=== PATIENT | female | born 1965 | race African-American/Black ===

== ENCOUNTER → 2017-02-01 | Day surgery (SDC) | payer OTHER ==
[~2017-02-01] MED LIST: CITALOPRAM HBR10 MG PO; FLEXERIL10 MG PO; HYDROCODON-ACE1 EAC7 PO; HYDROXYZINE HCL50 MG PO; MEDROL DOSEPAK4 MG DOB; MOBIC15 MG PO; MULTI-DAY VITA1 EACH PO; NEURONTIN100 MG PO; NORCO1 TAB 10/3 PO; PROZAC10 M1 PO; REMERON SOLTAB15 MG PO; VITAMIN B122500 MCG PO
--- NOTE | ~2017-02-01 | OR ---
Unit #: [id number] #: [id number] Patient: JAGUAR ONEIL [id number] [address] [address] [id number] O MR#: [id number] NAME: JAGUAR ONEIL ROOM: Date of Procedure: 02/01/2017 Admission Date: 02/01/2017 Surgeon: Scott Cortes M.D. : 1965 Attending Physician: Scott Cortes M.D. Primary Care Physician: Radha England M.D. OPERATIVE REPORT PRIMARY CARE PHYSICIAN Radha England M.D. PREOPERATIVE DIAGNOSIS Colorectal cancer screening in an average-risk patient. PROCEDURE PERFORMED Colonoscopy up to cecum with polypectomy. POSTOPERATIVE DIAGNOSES 1. Single sessile polyp in the cecum removed using snare polypectomy. 2. The examination was otherwise normal up to cecum. The quality of the prep was excellent. RECOMMENDATIONS 1. Follow up the results of polyp histology. 2. Repeat colonoscopy in 5 years. SEDATION USED MAC. DESCRIPTION OF PROCEDURE Following detailed explanation of potential risks and complications of a colonoscopy, namely perforation, bleeding, complication related to sedation, the patient was brought to GI lab and laid in the left lateral decubitus position. A digital rectal examination was performed, which was normal. Lubricated tip of the Olympus video colonoscope was inserted through the anus and advanced under direct vision. The scope was advanced past rectosigmoid into descending colon. No diverticula were noted in this area. The scope tip was then navigated all the way up to cecum with visualization of the ileocecal valve and the appendiceal orifice. Preparation was excellent with good visualization and photodocumentation was obtained. Successive segments of the colonic mucosa were examined upon withdrawal and appeared unremarkable except for a single sessile polyp. This was found in the cecum adjacent to ileocecal valve. It was about a centimeter in size. It was removed using snare cautery polypectomy. The polyp was retrieved and sent for histology. No additional polyps were noted. The patient did not have any diverticulosis nor any hemorrhoids. The scope was then withdrawn and the patient returned to the recovery area. She tolerated the procedure without any postprocedure complications. Unit #: [id number] #: [id number] Patient: JAGUAR ONEIL Dictated by... Jammie Ramirez/gudelia TD: 02/01/2017 14:57 JOB #: [id number] OPERATIVE REPORT Page 1 of 1 X Scott Cortes MD PROCEDURE OPERATIVE NOTE
== END | disposition home or self-care (01) ==
LOC: COPS 11:27
PROVIDERS: Internal Medicine Gastroenterology
PROC: 0DBH8ZX Excision of Cecum, Via Natural or Artificial Opening Endoscopic, Diagnostic (ICD-10-PCS; principal; 2017-02-01 11:30)
DX: Z12.11 Encounter for screening for malignant neoplasm of colon (principal); K63.5 Polyp of colon; M48.00 Spinal stenosis, site unspecified; Z79.899 Other long term (current) drug therapy; Z79.891 Long term (current) use of opiate analgesic; Z90.710 Acquired absence of both cervix and uterus; Z98.890 Other specified postprocedural states
CPT/HCPCS: 88305; J2250